=== PATIENT | female | born 1970 | race Hispanic/Latino ===

== ENCOUNTER 2018-04-04 17:26 | Emergency (ER) | payer MEDICARE ==
[~2018-04-04 17:26] MED LIST: DUONEB IH; GUAI600T50 PO; LEVO750T46 PO
[2018-04-04 18:05] LABS: BASOPHILS % (AUTO) 0.3 % (0.0-5.0); EOSINOPHILS % (AUTO) 1.1 % (0.0-8.0); HEMATOCRIT 38.7 % (36-48); LYMPHOCYTES % (AUTO) 25.3 % (21.0-51.0); MEAN CORPUSCULAR HGB CONC 33.7 g/dL (32.0-36.0); MEAN CORPUSCULAR VOLUME 89.1 fL (79-99); MONOCYTES % (AUTO) 12.4 % (3.0-13.0); NEUTROPHILS % (AUTO) 60.9 % (40.0-77.0); NUCLEATED RED BLOOD CELLS 0.1 % (0.0-0.19); PLATELET COUNT (AUTO) 216 K/uL (130-400); RED BLOOD CELL COUNT(AUTO) 4.35 MIL/uL (4.00-5.50); RED CELL DISTRIBUTION WIDTH 15.6 % (11.0-15.5); WHITE BLOOD COUNT (AUTO) 9.2 K/uL (4.8-10.8)
[2018-04-04 18:12] LABS: CREATININE 0.8 mg/dL (0.5-1.5); POTASSIUM 3.7 mmol/L (3.5-5.1)
[2018-04-04 18:16] LABS: ALBUMIN 3.2 g/dL (3.5-5.0); BILIRUBIN,TOTAL 0.2 mg/dL (0.2-1.0); TOTAL PROTEIN, SERUM 7.3 g/dL (6.0-8.3)
[2018-04-04 18:33] LABS: APPEARANCE,URINE CLOUDY (CLEAR); BILIRUBIN,URINE SMALL (NEGATIVE); COLOR,URINE YELLOW (YELLOW); GLUCOSE, URINE (UA) NEGATIVE (NEGATIVE); KETONES,URINE 15 mg/dL (NEGATIVE); LEUKOCYTE ESTERASE ,URINE SMALL (NEGATIVE); NITRATE,URINE NEGATIVE (NEGATIVE); OCCULT BLOOD,URINE SMALL (NEGATIVE); PH,URINE 5.5 (5.0-8.0); PROTEIN,URINE 100 (NEGATIVE); UROBILINOGEN,URINE 0.2 mg/dL (0.2-1.0)
[2018-04-04 18:43] LABS: BACTERIA,URINE Moderate /HPF (None Seen)
[2018-04-04 18:44] LABS: AMORPHOUS SEDIMENT,UR Moderate /LPF (None Seen); MUCUS,URINE Rare LPF (None Seen); SQUAMOUS EPITHELIAL CELL,UR Few /HPF (0-2)
== END 2018-04-04 20:34 | disposition home or self-care (01) ==
LOC: EDH 17:26
DX: M54.5 Low back pain (principal); J45.909 Unspecified asthma, uncomplicated; I10 Essential (primary) hypertension; E78.5 Hyperlipidemia, unspecified; F31.9 Bipolar disorder, unspecified; Z88.6 Allergy status to analgesic agent; Z98.890 Other specified postprocedural states
CPT/HCPCS: 36415; 72131; 80053; 81001; 85025

== ENCOUNTER 2018-04-23 13:08 | Emergency (ER) | payer MEDICARE ==
[2018-04-23 15:02] LABS: BASOPHILS % (AUTO) 0.7 % (0.0-5.0); EOSINOPHILS % (AUTO) 0.4 % (0.0-8.0); HEMATOCRIT 32.6 % (36-48); LYMPHOCYTES % (AUTO) 20.3 % (21.0-51.0); MEAN CORPUSCULAR HEMOGLOBIN 30.1 pg (27.0-33.0); MEAN CORPUSCULAR HGB CONC 33.2 g/dL (32.0-36.0); MEAN CORPUSCULAR VOLUME 90.6 fL (79-99); NEUTROPHILS % (AUTO) 68.6 % (40.0-77.0); NUCLEATED RED BLOOD CELLS 0.1 % (0.0-0.19); PLATELET COUNT (AUTO) 291 K/uL (130-400); RED CELL DISTRIBUTION WIDTH 16.4 % (11.0-15.5); WHITE BLOOD COUNT (AUTO) 11.6 K/uL (4.8-10.8)
[2018-04-23 15:22] LABS: CREATININE 0.8 mg/dL (0.5-1.5); POTASSIUM 3.5 mmol/L (3.5-5.1)
[2018-04-23 15:31] LABS: ALBUMIN 2.4 g/dL (3.5-5.0); BILIRUBIN,TOTAL 0.2 mg/dL (0.2-1.0); TOTAL PROTEIN, SERUM 6.9 g/dL (6.0-8.3)
[2018-04-23 16:14] LABS: ERYTHROCYTE SEDIMENTATION RATE 61 MM/HR (0-15)
== END 2018-04-23 16:43 | disposition home or self-care (01) ==
LOC: EDH 13:08
DX: L03.116 Cellulitis of left lower limb (principal); S20.02XA Contusion of left breast, initial encounter; J45.909 Unspecified asthma, uncomplicated; E78.5 Hyperlipidemia, unspecified; I10 Essential (primary) hypertension; E03.9 Hypothyroidism, unspecified; Z88.6 Allergy status to analgesic agent; Z79.899 Other long term (current) drug therapy; X58.XXXA Exposure to other specified factors, initial encounter; Y93.89 Activity, other specified; Y92.89 Other specified places as the place of occurrence of the external cause; Y99.8 Other external cause status
CPT/HCPCS: 36415; 80053; 83605; 85025; 85651; 90471; 93970; 96365; 99284; 99285; J3490

== ENCOUNTER → 2023-07-03 | Outpatient (CLI) | payer MEDICARE ==
[~2023-07-03] MED LIST changes: +ACET-2123 PO; +BISM262O28 PO; +BISM262T18 PO; +BUSP15 PO; +CARB15DR47 OT; +DIPH25TA51 PO; +DIPH30C TP; +DIVA500T52 PO; +DOCU100C33 PO; -DUONEB IH; +FURO20TA6 PO; +GADOTERATE MEGLUMINE 10 MMOL/20 ML VIAL IV ONE; +GUAI5SYR PO; -GUAI600T50 PO; +HYDR28.32 TP; +IBUP-2784 PO; +IPRA3AMP24 IH; +LEVO150T11 PO; -LEVO750T46 PO; +LORA0.5T2 PO; +MIRT7.5T11 PO; +MOM30 PO; +NAPR-1023 PO; +OXYB5TAB15 PO; +PHEN177S29 PO; +RANI150T7 PO; +RISP3TAB63 PO
== END | disposition home or self-care (01) ==
LOC: RAH 13:09
PROVIDERS: ATTEND Internal Medicine
DX: M87.051 Idiopathic aseptic necrosis of right femur (principal); N32.89 Other specified disorders of bladder
CPT/HCPCS: 73720 ×2; A9575

== ENCOUNTER → 2024-09-07 | Outpatient (CLI) | payer MEDICARE ==
[~2024-09-07] MED LIST changes: -GADOTERATE MEGLUMINE 10 MMOL/20 ML VIAL IV ONE; -OXYB5TAB15 PO; +OXYB5TAB20 PO; -RISP3TAB63 PO; +RISP3TAB77 PO
== END | disposition home or self-care (01) ==
LOC: RAH 13:46
PROVIDERS: ATTEND Internal Medicine
DX: C43.39 Malignant melanoma of other parts of face (principal); G31.89 Other specified degenerative diseases of nervous system
CPT/HCPCS: 70551